=== PATIENT | male | born 1945 | race Caucasian/White ===

== ENCOUNTER 2024-09-17 10:04 | Emergency (ER) | payer OTHER, SELFPAY ==
[2024-09-17] VITALS (19 sets, daily range): BP systolic 94–231; BP diastolic 53–159; PULSE 69–99; RESP 12–25; TEMP 36.6–36.9; O2SAT 91–99; BMI 23.6
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
[2024-09-17 10:36] LABS: Add Manual Diff / Slide Review NO; Basophils Absolute Auto 0 /uL (0-100); Basophils Percent Auto 0.7 % (0-2); Eosinophils Absolute Auto 100 /uL (0-450); Eosinophils Percent Auto 1.5 % (2-4); Hematocrit 41.7 % (41-53); Hemoglobin 14.1 g/dL (13.5-17.5); Lymphocytes Absolute Auto 1400 /uL (1100-4500); Mean Corpuscular HGB Conc 33.9 % (30-36); Mean Corpuscular Hemoglobin 28.7 PG (26-34); Mean Corpuscular Volume 84.6 fL (80-100); Monocytes Absolute Auto 400 /uL (0-900); Neutrophils Absolute Auto 3100 /uL (1500-7000); Neutrophils Percent Auto 61.8 % (50-75); Platelet Count 188 X10^3/uL (150-400); Red Blood Cell Count 4.93 X10^6/uL (4.5-5.9); Red Cell Distribution Width 14.8 % (11.6-14.8)
[2024-09-17 10:41] LABS: BUN Creatinine Ratio 29.5 (6-22); Blood Urea Nitrogen 28 mg/dL (9-20); Calcium 9.3 mg/dL (8.4-10.2); Carbon Dioxide 27 mmol/L (22-32); Chloride 93 mmol/L (98-107); Estimated Glomerular Filt Rate > 60 mL/min (>60); Glucose 152 mg/dL (80-110); HEMOLYSIS < 15 (0-50); Potassium 3.8 mmol/L (3.4-5.1); Sodium 132 mmol/L (137-145)
[2024-09-17] MEDS: TET,DIPH,PERTUSS(ACELL),VAC/PF 0.5 ML SYRINGE IM (10:51)
[2024-09-17] MEDS: MORPHINE 2 MG/ML INJ IV ×3 (10:51→13:54)
[2024-09-17] MEDS: ONDANSETRON 4 MG/2 ML INJ IV (11:06)
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
[2024-09-17] MEDS: LIDOCAINE 2% (GLYDO) 6 ML GEL TOP (13:42)
[2024-09-17] MEDS: LACTATED RINGERS 1,000 ML 300 ML IV (13:42)
--- NOTE | 2024-09-17 13:45 | PC.NURSE ---
Dr Gaxiola notified of BP of 226/115. Medicated for pain. Mccray catheter placed.
== END 2024-09-17 15:32 | disposition short-term general hospital (02) ==
PROVIDERS: Emergency Provider Emergency Medicine
DX: T21.34XA Burn of third degree of lower back, initial encounter (principal); T21.13XA Burn of first degree of upper back, initial encounter; T31.11 Burns involving 10-19% of body surface with 10-19% third degree burns; X08.8XXA Exposure to other specified smoke, fire and flames, initial encounter; Y92.69 Other specified industrial and construction area as the place of occurrence of the external cause; Y99.0 Civilian activity done for income or pay; Z23 Encounter for immunization
CPT/HCPCS: 16030; 36415; 80048; 85025; 90471; 96361; 96374; 96375; 96376; 99284; 99285; 90715; J2270; J2405